=== PATIENT | male | born 1990 | race Caucasian/White ===

== ENCOUNTER 2016-10-30 23:00 | Inpatient (IN) | payer OTHER ==
--- NOTE | ~2016-10-30 | DS ---
Unit #: [id number] #: [id number] Patient: CONCHA LOMELI [id number] [facility] [address] [place] [address] [id number] MR#: [id number] NAME: CONCHA LOMELI. ROOM: [facility] Age: 26 Sex: M Admission Date: 10/31/2016 : 1990 Discharge Date: 11/01/2016 Attending Physician: Jonathan Santoyo M.D. DISCHARGE SUMMARY REASON FOR ADMISSION Depression, substance abuse. DIAGNOSTIC STUDIES LABORATORY RESULTS: Unremarkable except urine drug screen positive for marijuana. HOSPITAL COURSE The patient was admitted to inpatient unit on 10/31/2016 and discharged on 11/01/2016. The patient was cooperative during his stay. Denied any thoughts of harming self or others. No aggression, self-harming behavior. The patient was not treated with any medication. Subsequently, the patient was discharged with a plan to follow up in outpatient program. DISCHARGE MEDICATIONS None. DISCHARGE DIAGNOSES Psychiatric: Mood disorder, not otherwise specified, F32.9; rule out major depressive disorder, F33.2; opioid use disorder, severe, F11.20; cannabis abuse, moderate, F12.20. Secondary diagnosis: Deferred. Medical diagnosis: None. Stressors: Psychosocial stressors. DISCHARGE INSTRUCTIONS The patient to follow up in outpatient clinic as per social work instructor. CONDITION ON DISCHARGE The patient was pleasant and cooperative. Denied any psychotic symptom or any suicidal ideation. PROGNOSIS Guarded. DIET AND ACTIVITY As tolerated. Dictated by... Unit #: [id number] #: [id number] Patient: CONCHA LOMELI Aguila Salinas/melania TD: 11/01/2016 13:22 JOB #: [id number] DISCHARGE SUMMARY Page 1 of 1 X Jonathan Santoyo MD X DISCHARGE SUMMARY
--- NOTE | ~2016-10-30 | PA ---
Unit #: [id number] #: [id number] Patient: KRYSTIAN LOMELI [id number] [facility] [address] [place] [address] [id number] MR#: [id number] NAME: KRYSTIAN LOMELI. ROOM: P258 Age: 26 Sex: M Admission Date: 10/31/2016 : 1990 Date of Assessment: Attending Physician: Jonathan Santoyo M.D. Admitting Physician: Jonathan Santoyo M.D. PSYCHIATRIC ASSESSMENT INFORMANTS The patient reliability, fair informant and chart reliability, good. CHIEF COMPLAINT Making comments about harming self and others and depression. HISTORY OF PRESENT ILLNESS Mr. Krystian Lomeli is a 26-year-old male, seen on 2-[facility]. The patient admitted with the above-mentioned complaint. The patient has a history of previous admission at [facility] and [facility] jabari [facility]. The patient currently homeless. The patient admitted with making suicidal and homicidal ideation. The patient reported that he wanted to take an intentional overdose and wants to harm his father. The patient was sad, mad, angry, and upset, but when he arrived on the unit the patient denied any suicidal or homicidal ideation. Reported that he is feeling better. The patient has a long history of substance abuse. The patient reported tobacco use, age of onset 17; marijuana, age of onset 12; crack cocaine, age of onset 18; LSD, age of onset 17; opioid, age of onset 16; amphetamine, age of onset 16; and benzodiazepine, age of onset 16. The patient denied any history of blackout, but history of IV drug abuse and history of withdrawal symptoms. Needing inpatient admission at this time for psychiatric stabilization. PAST PSYCHIATRIC HISTORY Remarkable for history of previous admission at [facility], last admission in 2014. FAMILY HISTORY AND SOCIAL HISTORY Poor support system. No history of abuse. Currently homeless. MEDICAL HISTORY Unremarkable for any chronic medical illness. Musculoskeletal; muscle strength and tone, no atrophy or abnormal movement. Gait normal. MEDICATION HISTORY None. ALLERGIES No known drug allergies. SUBSTANCE ABUSE HISTORY Please see above. Unit #: [id number] #: [id number] Patient: KRYSTIAN LOMELI REVIEW OF SYSTEMS HEENT: Eyes, clear. Ears, nose, mouth, and throat; clear. CARDIOVASCULAR: Unremarkable. RESPIRATORY: Unremarkable. GI: Unremarkable. : Unremarkable. SKIN: Unremarkable. LYMPH NODE: Unremarkable. NEUROLOGIC: Unremarkable. ENDOCRINE: Unremarkable. HEMATOLOGIC: Unremarkable. ALLERGIC/IMMUNOLOGIC: Unremarkable. MUSCULOSKELETAL: Muscle strength and tone, no atrophy or abnormal movement. Gait normal. MENTAL STATUS EXAMINATION CONSTITUTIONAL: Measurement of vital signs; temperature 97.3, heart rate 107, respiratory rate 18, and blood pressure 109/93. Height 6 feet and weight 145 pounds. GENERAL APPEARANCE: The patient dressed casually. No facial deformity noted. MUSCULOSKELETAL: Please see above. PSYCHIATRIC EXAMINATION Description of speech; regular rate, normal volume, normal articulation, and coherent. Description of thought process, goal directed. Description of association, intact. Description of abnormal psychotic thinking; the patient denied any suicidal ideation or homicidal ideation, but reported at intake. Description of the patient's judgment: Concerning everyday activity, poor. Social situation, poor. Concerning psychiatric condition, poor. Complete mental status examination; oriented in time, place, and person. Recent and remote memory, fair. Attention span and concentration, fair. Language, able to name object and repeat phrases. Fund of knowledge, aware of current event and passive vocabulary intact. Mood and affect, sad and dysphoric. Insight and judgment, fair to poor. ASSETS AND LIABILITIES Assets, the patient is articulate and able to take care of his ADL. Liability, history of depression and substance abuse. ADMITTING DIAGNOSES Psychiatric: Major depressive disorder, recurrent, severe, F33.2 and opioid use disorder, severe, F11.20. Secondary diagnosis: Deferred. Medical diagnosis: None. Stressors: Psychosocial stressors. PSYCHIATRIC PLAN AND TREATMENT GOAL AND DISCHARGE PLAN 1. Advised to admit the patient on the inpatient unit. Provide safe, supportive, and structured environment. 2. Ordered labs; CBC, CMP, UA, and UDS. 3. The patient to be monitored for any self-harm and aggression. 4. The patient to attend all the programing on the inpatient unit, group Unit #: [id number] #: [id number] Patient: KRYSTIAN LOMELI, individual therapy, and chemical dependency group. TREATMENT GOAL To attain euthymic mood, gain insight into his problem, and learn coping skills. If needed, consider medication. DISCHARGE PLAN Plan to stabilize the patient and consider followup in outpatient program. ESTIMATED LENGTH OF STAY 3 to 5 days. Dictated by... Aguila Salinas/melania TD: 11/01/2016 16:46 JOB #: [id number] PSYCHIATRIC ASSESSMENT Page 1 of 1 X Jonathan Santoyo MD PSYCHIATRIC ASSESSMENT
--- NOTE | ~2016-10-30 | HP ---
Unit #: [id number] #: [id number] Patient: KRYSTIAN LOMELI [id number] [place] [address] [id number] MR#: [id number] NAME: KRYSTIAN LOMELI. ROOM: P258 Age: 26 Sex: M Admission Date: 10/31/2016 : 1990 Attending Physician: Jonathan Santoyo M.D. Admitting Physician: Jonathan Santoyo M.D. Primary Care Physician: Primary Care Physician No HISTORY AND PHYSICAL HISTORY OF PRESENT ILLNESS Krystian is a 26 year old admitted to [address] [place] [address] because of his drug use. He shoots heroin. PAST MEDICAL HISTORY History of illicit substance abuse to include IV heroin, methamphetamine and abusing benzodiazepines. PAST SURGICAL HISTORY Nothing reported. ALLERGIES No known drug allergies. SOCIAL HISTORY Smokes 1 pack per day. Denies alcohol. Admits to a history of polysubstance abuse to include IV heroin and methamphetamine. FAMILY HISTORY Medically noncontributory. REVIEW OF SYSTEMS CONSTITUTIONAL: No fever or chills. HEENT: Denies any sore throat, ear pain or runny nose. CARDIOVASCULAR: Denies chest pain, irregular heart rhythm or palpitations. CHEST: Denies shortness of breath or cough. No hemoptysis. GASTROINTESTINAL: Denies nausea, vomiting, diarrhea or chronic constipation. ENDOCRINE: Denies history of increased thirst or urination. No recent significant weight loss or gain. GENITOURINARY: Denies dysuria, frequency, or hematuria. SKIN: Denies any rashes. HEMATOLOGIC: Denies history of increased bleeding or bruising. MUSCULOSKELETAL: Denies any hot, swollen joints. No generalized muscle pain. NEUROLOGIC: Denies problems with vision or speech. No frequent, severe headaches. No numbness, tingling or weakness in any extremities. Denies loss of bladder or bowel control. CURRENT MEDICATIONS Detox protocol. PHYSICAL EXAMINATION Unit #: [id number] #: [id number] Patient: KRYSTIAN LOMELI GENERAL: Alert, well-nourished, in no apparent distress. VITAL SIGNS: Blood pressure 120/84, heart rate 100, respirations 16, temperature 98.6. WEIGHT: 145. HEIGHT: 6 feet 0 inches. SKIN: Warm and dry without rash or lesion. HEENT: Normocephalic. TMs not viewed. Nasal passages clear. Multiple blisters noted along the buccal mucosa. Conjunctivae clear. PERRLA. EOMs intact. NECK: Supple without lymphadenopathy or thyromegaly. HEART: Regular rate and rhythm without murmur. LUNGS: Clear. ABDOMEN: Soft, nontender. : Not done. EXTREMITIES: No evidence of cyanosis, clubbing or edema. Moves all without focal deficit. NEUROLOGICAL: Grossly within normal limits. Cranial Nerves: II: Visual patel are intact. III, IV AND : Extraocular movements are intact. Pupils are equal, round and reactive to light. V: Facial sensation is grossly normal. VII: Facial movements and expression are normal. VIII: Auditory acuity grossly intact. IX, X: Uvula is midline. Phonation is normal. XI: Patient shrugs shoulders and turns head normally. XII: Tongue protrudes in the midline. Sensory and Motor Function: Sensory and motor sensation is grossly normal. Motor: moves all extremities well. Coordination: Gait is normal. Deep Tendon Reflexes: Intact. IMPRESSION 1. Psychiatric admission. 2. Mouth ulcers. RECOMMENDATIONS PSYCHIATRIC: Per psychiatrist. MEDICAL: 1. See no contraindications to participate in facility's activities. 2. Nystatin swish and swallow 5 cc t.i.d. x7 days. MEDICAL PROGNOSIS Good. MEDICAL CONDITION Stable. Dictated by... Maude Zafar P.A.-C. for Aguila Frey/lawrence TD: 10/31/2016 21:53 JOB #: [id number] Unit #: [id number] #: [id number] Patient: KRYSTIAN LOMELI HISTORY AND PHYSICAL Page 1 of 1 X Maude Zafar HISTORY AND PHYSICAL
== END 2016-11-01 10:30 | disposition home or self-care (01) | DRG 885 ==
LOC: P2L 10-31 05:53
PROC: HZ2ZZZZ Detoxification Services for Substance Abuse Treatment (ICD-10-PCS; principal; 2016-10-31)
DX: F39 Unspecified mood [affective] disorder (principal); F33.2 Major depressive disorder, recurrent severe without psychotic features; F11.20 Opioid dependence, uncomplicated; F17.210 Nicotine dependence, cigarettes, uncomplicated; Z59.0 Homelessness; F12.20 Cannabis dependence, uncomplicated